=== PATIENT | male | born 1945 | race Caucasian/White ===

== ENCOUNTER → 2017-05-11 | Outpatient (CLI) | payer MEDICARE ==
--- NOTE | 2017-05-11 14:32 | CT ---
EXAMINATION TYPE: CT abdomen pelvis wo con DATE OF EXAM: 05/11/2017 COMPARISON: CT chest 10/02/2013. HISTORY: 71-year-old male persistent RLQ pain CT DLP: 982 mGycm. Automated exposure control for dose reduction was used. TECHNIQUE: Contiguous axial scanning of the abdomen and pelvis without IV contrast. Coronal and sagit dylan reconstructions performed. FINDINGS: Heart is normal size without pericardial effusion. Some coronary vessel calcifications are seen. Scattered bibasilar pulmonary nodules measuring up to 5 mm on the right axial image 5 and 7. On the l eft, 4 mm and smaller pulmonary nodules seen on axial image 5, 8, 9, and 13. All of these were presen t back on 10/02/2013. Noncontrast appearance of the liver, gallbladder, adrenal glands, spleen, and pancreas show no gross abnormality. Small sized periumbilical hernia. Mild bilateral perinephric stranding likely chronic, senescent change. Similarly, mild stranding thro ughout the intra-abdominal fat likely also senescent change. Mild to moderate at the scattered calcifications within the abdominal aorta and iliac arteries. No mesenteric or retroperitoneal lymphadenopathy seen. No dilated small bowel, free fluid, or free air. While the appendix is not visualized, no focal inflammatory changes seen within the right lower quadr ant Scattered mild to moderate stool without pericolonic inflammatory change. Bladder is urine distended. Prostate gland is enlarged measuring 5.2 cm wide. No abnormal fluid colle ction in the pelvis or pelvic lymphadenopathy seen. Bones: Degenerative changes at both hips and sacroiliac joints and within the mid to lower lumbar spi ne. No osseous destructive process. IMPRESSION: 1. No specific acute inflammatory process identified to account for the patient's symptoms. 2. Bibasilar pulmonary nodules stable back to 2012 compatible with a benign etiology. 3. Prostatomegaly (5.2 cm wide). Small fat-containing umbilical hernia.
== END | disposition home or self-care (01) ==
LOC: RADCTMAIN 12:55
PROVIDERS: ATTEND Internal Medicine
DX: R10.31 Right lower quadrant pain (principal); R91.8 Other nonspecific abnormal finding of lung field; N40.0 Benign prostatic hyperplasia without lower urinary tract symptoms; K42.9 Umbilical hernia without obstruction or gangrene; Z88.0 Allergy status to penicillin; Z88.3 Allergy status to other anti-infective agents
CPT/HCPCS: 74176

== ENCOUNTER → 2017-09-29 | Outpatient (CLI) | payer MEDICARE ==
--- NOTE | 2017-09-29 17:22 | US ---
EXAMINATION TYPE: US venous doppler duplex LE LT DATE OF EXAM: 09/29/2017 5:11 PM COMPARISON: NONE CLINICAL HISTORY: M79.662 Pain left lower limb R22.42 Swelling LLE. SIDE PERFORMED: Left TECHNIQUE: The lower extremity deep venous system is examined utilizing real time linear array sonog kevin with graded compression, doppler sonography and color-flow sonography. VESSELS IMAGED: External Iliac Vein (EIV) Common Femoral Vein Deep Femoral Vein Greater Saphenous Vein * Femoral Vein Popliteal Vein Small Saphenous Vein * Proximal Calf Veins (* superficial vessels) Left Leg: Negative for DVT Preliminary results phoned to Dr. Fontaine at 5:12 pm. IMPRESSION: Normal exam. No evidence of deep venous thrombosis in the left leg.
== END | disposition home or self-care (01) ==
LOC: RADUSMAIN 16:42
PROVIDERS: ATTEND Internal Medicine
DX: M79.662 Pain in left lower leg (principal); R22.42 Localized swelling, mass and lump, left lower limb

== ENCOUNTER → 2019-11-11 | Outpatient (CLI) | payer MEDICARE ==
[2019-11-11 14:35] LABS: HCT 32.8 % (39.0-53.0); HGB 10.9 gm/dL (13.0-17.5); MCH 30.2 pg (25.0-35.0); MCHC 33.1 g/dL (31.0-37.0); MCV 91.3 fL (80.0-100.0); Mean Platelet Volume 8.6; Platelet Count 170 k/uL (150-450); RDW 12.5 % (11.5-15.5); WBC 6.5 k/uL (3.8-10.6)
[2019-11-11 14:46] LABS: African American GFR (CKD) >90 (>60 ml/min/1.73 sqM); Anion Gap 5 mmol/L; Blood Urea Nitrogen 22 mg/dL (9-20); Carbon Dioxide 30 mmol/L (22-30); Chloride 102 mmol/L (98-107); Glucose 67 mg/dL (74-99); Non-African American GFR(CKD) 80 (>60 ml/min/1.73 sqM); Potassium 4.9 mmol/L (3.5-5.1); Sodium 137 mmol/L (137-145)
== END | disposition home or self-care (01) ==
LOC: LABPAT 13:14
PROVIDERS: ATTEND Internal Medicine Interventional Cardiology
DX: Z01.812 Encounter for preprocedural laboratory examination (principal); I25.10 Atherosclerotic heart disease of native coronary artery without angina pectoris; E11.9 Type 2 diabetes mellitus without complications
CPT/HCPCS: 36415; 80051; 82565; 82947; 84520; 85027

== ENCOUNTER 2019-11-20 06:18 | Day surgery (SDC) | payer MEDICARE ==
[2019-11-15 12:47] VITALS: BMI 26.5
[2019-11-20] MEDS ORDERED: ASPIRIN 325 MG TAB PO STA (06:33)
[2019-11-20] MEDS ORDERED: ATORVASTATIN 80 MG TAB PO STA (06:33)
[2019-11-20] MEDS ORDERED: NITROGLYCERIN SL TABS 0.4 MG TAB SUBLINGUAL PRN ×2 (06:33→09:20)
[2019-11-20] MEDS ORDERED: ALPRAZolam 0.5 MG TAB PO PRN (06:33)
[2019-11-20] MEDS ORDERED: ALPRAZolam 0.25 MG TAB PO PRN (06:33)
[2019-11-20] MEDS ORDERED: SODIUM CHLORIDE 0.9% 1,000 ML in EMPTY BAG 1 BAG IV ONE (06:33)
[2019-11-20 07:12] LABS: Glucose,Whole Blood 146 mg/dL (75-99)
[2019-11-20] MEDS ORDERED: fentaNYL (PF) 50 MCG/ML 2 ML AMP ONE (07:16)
[2019-11-20] MEDS ORDERED: VERAPAMIL 2.5 MG/ML 2 ML AMP ONE (07:16)
[2019-11-20] MEDS ORDERED: LIDOCAINE 1% INJ 10MG/ML (20 ML MDV) ONE (07:16)
[2019-11-20] MEDS ORDERED: HEPARIN SODIUM 1,000 UN/ML (10ML VL) ONE (07:16)
[2019-11-20] MEDS ORDERED: fentaNYL (PF) 50 MCG/ML 2 ML AMP IV ONE (07:35)
[2019-11-20] MEDS ORDERED: MIDAZOLAM 2 MG/2 ML VIAL IV ONE (07:38)
[2019-11-20] MEDS ORDERED: LIDOCAINE 1% INJ 10MG/ML (20 ML MDV) SQ ONE (07:38)
[2019-11-20] MEDS ORDERED: VERAPAMIL SYRINGE (5 MG/10 ML) INTRAARTER ONE (07:43)
[2019-11-20] MEDS ORDERED: BIVALIRUDIN BOLUS 250 MG/50 ML IV ONE ×2 (07:54→08:44)
[2019-11-20] MEDS ORDERED: BIVALIRUDIN 250 MG in SODIUM CHLORIDE 0.9% 50 ML IV ONE (07:55)
[2019-11-20] MEDS ORDERED: PRASUGREL 10 MG TAB PO ONE (07:55)
[2019-11-20] MEDS ORDERED: PRASUGREL 10 MG TAB ONE (07:56)
[2019-11-20] MEDS: NITROGLYCERIN 1000MCG/10ML SYRINGE INTRACORON ONE ×2 (07:59→08:37)
[2019-11-20] MEDS ORDERED: IOPAMIDOL-370 125ML BTL INJ ONE (08:07)
[2019-11-20] MEDS ORDERED: BIVALIRUDIN 250 MG in SODIUM CHLORIDE 0.9% 32 ML IV ONE (08:44)
[2019-11-20] MEDS ORDERED: IOPAMIDOL-370 100ML BTL INJ ONE ×2 (08:49→09:01)
[2019-11-20] MEDS ORDERED: ATROPINE SULFATE 0.1 MG/ML 10ML SYRINGE IV PRN (09:20)
[2019-11-20] MEDS ORDERED: RX INFO: IV CONTRAST WAS GIVEN 1 EACH MISC MISCELLANE PRN (09:20)
[2019-11-20] MEDS ORDERED: ZOLPIDEM 5 MG TAB PO PRN (09:20)
[2019-11-20] MEDS ORDERED: MAG HYDROX/AL HYDROX/SIMETH 30 ML CUP PO PRN (09:20)
[2019-11-20] MEDS ORDERED: LOPERAMIDE 2 MG CAP PO PRN (09:21)
[2019-11-20] MEDS ORDERED: SODIUM CHLORIDE 0.9% 1,000 ML IV SCH (09:30)
[2019-11-20] MEDS ORDERED: INSULIN ASPART (NovoLOG) 100 UNIT/ML VIAL SQ SCH (09:30)
[2019-11-20 09:42] LABS: Glucose,Whole Blood 151 mg/dL (75-99)
--- NOTE | 2019-11-20 09:49 | CC ---
CARDIAC CATHETERIZATION REPORT Mr. Hassan is a 74-year-old male with known history of hypertension, hyperlipidemia, longstanding history of diabetes and history of coronary artery disease with subtotally chronic occlusion of the right coronary artery, who recently has been complaining of increasing discomfort in the elbow, which is his anginal pain. In view of that, recommendation regarding cardiac catheterization, the procedures, risks, and complication were discussed with the patient who is in full understanding and agreement. PROCEDURE: Patient was brought to test lab technician in the fasting semi-sedated state after receiving fentanyl and Benadryl and achieving moderate conscious sedated state. Using Xylocaine anesthesia and Seldinger technique, a 6-Egyptian sheath was introduced in the right radial artery. Selective right and left coronary angiography performed using 5- Egyptian 3.5 bend right and left Gauri catheter, multiple views including hemiaxial views obtained. Following that a 5-Egyptian tight pigtail catheter was introduced in the left ventricle and pressures were calculated. Following that, catheters were removed. images were reviewed. FINDINGS: FLUOROSCOPY: There was severe calcification involving the left main and the left anterior descending artery. LEFT MAIN: This is a short size vessel, bifurcating into left circumflex, left anterior descending artery, left main coronary artery has no evidence of high- grade stenosis. LEFT ANTERIOR DESCENDING ARTERY: This is a large-sized vessel reaching toward the apex with a wraparound apex segment heavily calcified proximally giving rise to a small diagonal branch proximally. The left anterior descending artery has intimal disease of 20% to 30% in the proximal mid segment without any evidence of high-grade stenosis. LEFT CIRCUMFLEX: This is a nondominant vessel, large in caliber giving rise to 3 obtuse marginal branch at the takeoff of the second obtuse marginal branch. There is 20% to 30% plaque. The second obtuse marginal branch is small caliber and has had significant obstructive disease about 70%-80% at the ostium. The rest of the vessel has no high-grade stenosis. Right coronary artery : this is a dominant vessel bifurcating into PDA segment and branches. The right coronary artery has a long subtotal occlusion in the mid segment with 99% the stenosis. Collaterals: There is collateral from the left coronary system to the right coronary artery PDA. LEFT VENTRICULOGRAM: Not performed. HEMODYNAMICS: There was no gradient across the aortic valve the ventricle end-diastolic pressure was 20-24 mmHg. CONCLUSION: 1. Subtotally occluded long segment of the right coronary artery, which is a chronic subtotal occlusion. 2. Mild to moderate disease in the LAD and the left circumflex with significant calcification of the LAD. RECOMMENDATION: In view of finding anatomy, I recommend proceeding with attempt to angioplasty and stenting the right coronary artery. The procedures risks and complication were discussed with the patient who is in full understanding and agreement. MMMAGED / ELEAZARN: [id number] / WILBUR
--- NOTE | 2019-11-20 09:49 | PTCA ---
PERCUTANEOUSTRANS CORORONARY ANGIOGRAPHY Mr. Hassan is a 74-year-old male with known history of hypertension, hyperlipidemia, diabetes mellitus, who has been complaining of progressive symptoms of angina pectoris, underwent cardiac catheterization, was found to have a subtotally occluded right coronary artery. In view of that, recommendation was made regarding angioplasty and stenting. The procedure as well as the risks and the complications were discussed with the patient who is in full understanding and agreement. PROCEDURE: A 6-Lao FR4 guiding catheter introduced in the system. After cannulating the right coronary ostium, a 0.014 balanced medium weight J-wire with the help of a SuperCross microcatheter were used to cross the lesion. The microcatheter would not advanced across the lesion. At that point, the microcatheter was removed and a 1.5 x 6 mm Sprinter balloon was advanced and attempt to advance across the lesion were unsuccessful. At that point, the balloon was removed and a 0.014 Whisper J-wire was advanced and positioned distally, and in spite of the dual wire the balloon could not be advanced. At that point, the Whisper wire was removed and Godzilla catheter was advanced and with the help of that catheter, a 1.5 x 6 mm Mini Trek balloon was advanced across the lesion. Multiple inflations, maximum of 10 atmospheres, were done. Following that, the balloon was removed and the 0.014 Whisper J-wire was re- advanced in position in the PDA. Subsequently over the whisper, a 2.25 x 12 mm Trek balloon was advanced and multiple inflations in the mid segment were done at maximum of 8 atmospheres. Following that, the balloon was removed and a 2.5 x 28 mm Xience Britta stent was deployed, postdilated at 16 atmospheres. After removing that balloon, a 2.5 x 12 mm Xience Britta stent was deployed distal to the first one, postdilated to 16 atmospheres and subsequently 2.5 x 12 mm Xience Britta stent was deployed proximal to the first one and postdilated to 16 atmospheres. After the last inflation, after appropriate wait, the balloon and the guidewire were withdrawn back in the guiding catheter. Images were obtained repeated. Those images reveal stable successful stenting. At that point, the guiding catheter, the balloon and the guidewire were removed. The sheath was removed. Hemostasis was obtained with deployment of a TR band. There was no immediate complication. Patient was returned to his room in stable condition. Of note, the patient received Angiomax per protocol as well as oral loading dose of Effient. He had no chest discomfort or EKG changes with the inflations. RESULTS: Successful stenting of a long segment of subtotally occluded proximal right coronary artery with reduction of stenosis from 99% to 0%. RECOMMENDATIONS: Patient will be continued on aspirin, Effient, beta david, ANDRES inhibitor and statin. The importance of dual antiplatelet treatment was discussed with the patient and his family who are in full understanding and agreement. Duration of procedure is 87 minutes. MMCHERIL / IJN: [id number] / MTDAlix
--- NOTE | 2019-11-20 09:55 | LTR ---
November 20, 2019 Re: Junior Lemuszayra Dear Dr. Fontaine: I had the opportunity to perform cardiac catheterization and coronary angioplasty and stenting on Mr. Hassan at [facility] on the 20 of November and a full copy of the procedure note will be forwarded to you. In brief, he was found to have subtotally occluded right coronary artery, under successful stenting of that vessel. I am hopeful that this procedure will stabilize his status. Thank you again for allowing me the opportunity to participate in his care. Please feel free to call for any questions. Sincerely yours, MD HENRY BarlowL / ELEAZARN: [id number] /
[2019-11-20 11:32] LABS: Glucose,Whole Blood 190 mg/dL (75-99)
[2019-11-20 16:53] LABS: Glucose,Whole Blood 68 mg/dL (75-99)
[2019-11-20 17:22] LABS: Glucose,Whole Blood 79 mg/dL (75-99)
[2019-11-20] MEDS: PANTOPRAZOLE 40 MG TABLET PO SCH (17:36)
[2019-11-20] MEDS: METOCLOPRAMIDE 10 MG TAB PO SCH ×2 (17:37→20:09)
[2019-11-20] MEDS: HYOSCYAMINE SULFATE 0.375 MG TAB.ER.12H PO SCH (20:08)
[2019-11-20] MEDS: GABAPENTIN 300 MG CAP PO SCH (20:09)
[2019-11-20 20:46] LABS: Glucose,Whole Blood 158 mg/dL (75-99)
[2019-11-21 05:22] VITALS: RESP 18
[2019-11-21 06:08] LABS: Glucose,Whole Blood 130 mg/dL (75-99)
[2019-11-21] MEDS: PANTOPRAZOLE 40 MG TABLET PO SCH (06:31)
[2019-11-21 07:05] LABS: African American GFR (CKD) >90 (>60 ml/min/1.73 sqM); Anion Gap 7 mmol/L; Blood Urea Nitrogen 20 mg/dL (9-20); Calcium 8.7 mg/dL (8.4-10.2); Carbon Dioxide 25 mmol/L (22-30); Chloride 107 mmol/L (98-107); Glucose 126 mg/dL (74-99); Non-African American GFR(CKD) 88 (>60 ml/min/1.73 sqM); Potassium 4.4 mmol/L (3.5-5.1); Sodium 139 mmol/L (137-145)
[2019-11-21] MEDS: METOCLOPRAMIDE 10 MG TAB PO SCH (08:58)
[2019-11-21] MEDS: HYOSCYAMINE SULFATE 0.375 MG TAB.ER.12H PO SCH (08:59)
[2019-11-21] MEDS ORDERED: CALCIUM CARB-VIT D 500MG-200UN 1 EACH TAB PO SCH (09:00)
[2019-11-21] MEDS ORDERED: METOPROLOL SUCCINATE (ER) 50 MG TAB.ER.24H PO SCH (09:00)
[2019-11-21] MEDS ORDERED: LORATADINE 10 MG TAB PO SCH (09:00)
[2019-11-21] MEDS ORDERED: CHOLECALCIFEROL 1,000 UNIT TAB PO SCH (09:00)
[2019-11-21] MEDS: GABAPENTIN 300 MG CAP PO SCH (09:00)
[2019-11-21] MEDS ORDERED: LISINOPRIL 20 MG TAB PO SCH (09:00)
[2019-11-21] MEDS ORDERED: ATORVASTATIN 40 MG TAB PO SCH (09:00)
[2019-11-21] MEDS ORDERED: ASPIRIN 81 MG PO SCH (09:00)
[2019-11-21] MEDS ORDERED: PRASUGREL 10 MG TAB PO SCH (09:00)
--- NOTE | 2019-11-21 09:41 | PN ---
PROGRESS NOTE Mr. Hassan is a 74-year-old male with known history of hypertension, hyperlipidemia, and diabetes mellitus who presented with progressive symptoms of angina pectoris, underwent cardiac catheterization, was found to have chronic subtotal occlusion of the right coronary artery, underwent stenting of that vessel. He is doing well this morning, ambulating without difficulty, denying any dizziness. No palpitation. He denies any nausea. He feels better overall. He continues to be on aspirin once a day, Lipitor 40 mg daily, insulin, Levbid, Neurontin 300 mg twice a day, Zestril 20 mg daily, Reglan 10 mg 3 times a day, metoprolol succinate 50 mg daily, Protonix and Effient 10 mg daily. PHYSICAL EXAMINATION: Blood pressure 136/60 with the heart rate in the 60s. LUNGS: Clear. HEART: Regular rate and rhythm. S1, S2. No S3 with systolic ejection murmur 2/6 heard at the base. No diastolic murmur. No rub. ABDOMEN: Soft, nontender. Positive bowel sounds. No organomegaly. EXTREMITIES: No edema. Right radial pulse intact. EKG revealed no acute changes. BUN and creatinine 20 and 0.81. Potassium 4.4. IMPRESSION: 1. Status post stenting of subtotal occlusion of the right coronary artery. 2. Hypertension. 3. Hyperlipidemia. 4. Diabetes mellitus. RECOMMENDATION: The patient will be discharged home today and followed as an outpatient. MMCHERIL / SUNG: [id number] /
[2019-11-21 09:42] VITALS: BP 140/67; PULSE 72; TEMP 98.4
== END 2019-11-21 10:45 | disposition home or self-care (01) ==
LOC: CATHCVL 06:18 → 3SCARD 16:16 → CATHCVL 11-21 10:45
PROVIDERS: ATTEND Internal Medicine Interventional Cardiology
DX: I25.110 Atherosclerotic heart disease of native coronary artery with unstable angina pectoris (principal); I25.84 Coronary atherosclerosis due to calcified coronary lesion; I10 Essential (primary) hypertension; Z87.891 Personal history of nicotine dependence; E78.2 Mixed hyperlipidemia; E11.9 Type 2 diabetes mellitus without complications; Z79.82 Long term (current) use of aspirin; Z79.4 Long term (current) use of insulin; Z79.899 Other long term (current) drug therapy; Z88.0 Allergy status to penicillin; Z88.8 Allergy status to other drugs, medicaments and biological substances
CPT/HCPCS: 94760; 93458; 85347; 80048; C1725 ×3; C9600; C1769 ×4; C1887 ×3; C1874; C1894; J2250; J2001; J3010; J0583; Q9967 ×2

== ENCOUNTER 2021-01-08 07:54 | Day surgery (SDC) | payer MEDICARE ==
[2021-01-04 15:31] VITALS: BMI 26.5
[~2021-01-08 07:54] MED LIST: ALPRAZolam 0.25 MG TAB PO PRN; ALPRAZolam 0.5 MG TAB PO PRN; ASPIRIN 325 MG TAB PO STA; ATORVASTATIN 80 MG TAB PO STA; HEPARIN SODIUM,PORCINE 10,000 UNIT in SODIUM CHLORIDE 0.9% 1,000 ML IRRIGATION PRN; HEPARIN SODIUM,PORCINE 2,500 UNIT in SODIUM CHLORIDE 0.9% 250 ML IRRIGATION PRN; NITROGLYCERIN SL TABS 0.4 MG TAB SUBLINGUAL PRN; SODIUM CHLORIDE 0.9% 1,000 ML in EMPTY BAG 1 BAG IV ONE
[2021-01-08] MEDS ORDERED: METOPROLOL SUCCINATE (ER) 50 MG TAB.ER.24H PO STA (08:20)
[2021-01-08 08:22] LABS: Glucose,Whole Blood 183 mg/dL (75-99)
[2021-01-08 08:25] VITALS: RESP 18; TEMP 97.6
[2021-01-08] MEDS ORDERED: LIDOCAINE 1% INJ 10MG/ML (20 ML MDV) ONE (08:30)
[2021-01-08] MEDS ORDERED: fentaNYL (PF) 50 MCG/ML 2 ML AMP ONE (08:30)
[2021-01-08 08:33] LABS: Basophils % (A) 0 %; Eosinophils # (A) 0.3 k/uL (0-0.7); Eosinophils % (A) 5 %; HCT 36.5 % (39.0-53.0); HGB 12.4 gm/dL (13.0-17.5); Lymphocytes # (A) 1.5 k/uL (1.0-4.8); Lymphocytes % (A) 26 %; MCH 30.3 pg (25.0-35.0); MCV 89.2 fL (80.0-100.0); Mean Platelet Volume 8.2; Monocytes # (A) 0.4 k/uL (0-1.0); Monocytes % (A) 7 %; Neutrophils # (A) 3.3 k/uL (1.3-7.7); Neutrophils % (A) 60 %; Platelet Count 189 k/uL (150-450); RBC 4.09 m/uL (4.30-5.90); RDW 12.8 % (11.5-15.5); WBC 5.5 k/uL (3.8-10.6)
[2021-01-08] MEDS ORDERED: VERAPAMIL 2.5 MG/ML 2 ML AMP ONE (08:44)
[2021-01-08] MEDS ORDERED: HEPARIN SODIUM 1,000 UN/ML (10ML VL) ONE (08:44)
[2021-01-08 08:49] LABS: Calcium 9.6 mg/dL (8.4-10.2); Potassium 4.3 mmol/L (3.5-5.1)
[2021-01-08] MEDS ORDERED: fentaNYL (PF) 50 MCG/ML 2 ML AMP IV ONE (09:20)
[2021-01-08] MEDS ORDERED: LIDOCAINE 1% INJ 10MG/ML (20 ML MDV) SQ ONE ×2 (09:25→09:37)
[2021-01-08] MEDS ORDERED: IOPAMIDOL-370 150ML BTL INJ ONE (09:55)
[2021-01-08] MEDS ORDERED: IOPAMIDOL-370 100ML BTL INJ ONE (10:10)
[2021-01-08] MEDS ORDERED: NITROGLYCERIN SL TABS 0.4 MG TAB SUBLINGUAL PRN (10:25)
[2021-01-08] MEDS ORDERED: ZOLPIDEM 5 MG TAB PO PRN (10:25)
[2021-01-08] MEDS ORDERED: ATROPINE SULFATE 0.1 MG/ML 10ML SYRINGE IV PRN (10:25)
[2021-01-08] MEDS ORDERED: RX INFO: IV CONTRAST WAS GIVEN 1 EACH MISC MISCELLANE PRN (10:25)
[2021-01-08] MEDS ORDERED: MAG HYDROX/AL HYDROX/SIMETH 30 ML CUP PO PRN (10:25)
[2021-01-08] MEDS ORDERED: LOPERAMIDE 2 MG CAP PO PRN (10:26)
[2021-01-08] MEDS ORDERED: METOCLOPRAMIDE 10 MG TAB PO PRN (10:26)
[2021-01-08] MEDS ORDERED: SODIUM CHLORIDE 0.9% 1,000 ML IV SCH (10:30)
[2021-01-08] MEDS ORDERED: INSULIN ASPART (NovoLOG) 100 UNIT/ML VIAL SQ SCH (10:30)
--- NOTE | 2021-01-08 10:53 | CC ---
CARDIAC CATHETERIZATION REPORT Mr. Hassan is a 75-year-old male with a known history of coronary artery disease, hypertension, hyperlipidemia and diabetes mellitus who presented with symptoms of elbow discomfort, which is similar to his anginal pain and in view of that, recommendation was made regarding cardiac catheterization. The procedure as well as risks and complications were discussed with the patient who is in full understanding and agreement. PROCEDURE: Patient was brought to micro lab analyst in a fasting semi-sedated state after receiving fentanyl and Benadryl and achieving moderate conscious sedated state. Using Xylocaine anesthesia and Seldinger technique, attempts to cannulate the right radial artery were unsuccessful. At that time using Xylocaine anesthesia and Seldinger technique a 6- [place] sheath was introduced in the right femoral artery. Selective right and left coronary angiography performed using 6-[place] 4 bend right and left Gauri catheter. Multiple views of the coronary artery including hemiaxial views were obtained. Following that, the aortic valve was crossed using the 6-[place] AL 0.75 guiding catheter. Following that, images were reviewed. FINDINGS: FLUOROSCOPY: There was significant calcification involving the left main as well as the left anterior descending artery. LEFT MAIN: This is a large-sized vessel, bifurcating into left circumflex, left anterior descending artery. Left main coronary artery has a 10% to 20% plaque distally. LEFT ANTERIOR DESCENDING ARTERY: This is a large-sized vessel reaching to the apex with a wraparound apex segment, calcified proximally, has a tubular lesion of about 30% to 40%. The rest of the vessel has no high-grade stenosis. It gives rise to a diagonal branch proximally that has intimal disease but it is small in caliber. LEFT CIRCUMFLEX: This is a codominant vessel, giving rise to 2 obtuse marginal branches. Distally, giving rise to right PDA. The second obtuse marginal branch is small in caliber and has a 90% plaque at the ostium. The proximal left circumflex is 20% to 30% plaque. The rest of the vessel has no evidence of high-grade stenosis. RIGHT CORONARY ARTERY: This is a large codominant vessel, bifurcating distally PDA and posterolateral segment and branches. The right coronary artery stented segment is patent. In the mid area, there is in-stent restenosis with area of stenosis up to 90%. The rest of the vessel has intimal disease without any evidence of high-grade stenosis. LEFT VENTRICULOGRAM: The left ventriculogram was not performed. HEMODYNAMICS: There was no gradient across the aortic valve. The left ventricular end- diastolic pressure was 20 mmHg. CONCLUSION: 1. Calcified coronary arteries. 2. Significant in-stent restenosis in the mid RCA. 3. Mild to moderate disease in the circumflex and the LAD. RECOMMENDATION: In view of finding anatomy, I recommend proceeding with angioplasty and stenting. The procedure, risks, and complication were discussed with the patient who is in full understanding and agreement. MMMAGED / ELEAZARN: [id number] / MTDD
--- NOTE | 2021-01-08 11:05 | PTCA ---
PERCUTANEOUSTRANS CORORONARY ANGIOGRAPHY Mr. Hassan is a 75-year-old male with a known history of coronary artery disease who presented with symptoms of angina pectoris, underwent cardiac catheterization, was found to have critical stenosis involving the mid right coronary artery. In view of that, recommendation was made regarding angioplasty and stenting, the procedure, risks, and complications were discussed with the patient who is in full understanding and agreement. PROCEDURE: A 6-Irish left Amplatz 0.75 guiding catheter introduced in the system. After stenting the right coronary ostium, a 0.014 balanced medium weight J-wire was advanced across the lesion, positioned distally then a 2.5 x 12 NC Emerge balloon was advanced and 2 inflations at 12 atmospheres were done. Following that the balloon was removed and a 2.75 x 15 mm Xience Britta stent was advanced, deployed and post dilated at 16 atmospheres. Following that, the balloon was removed and a 3.0 x 12 mm NC Trek balloon was advanced and one inflation at 14 atmospheres was done. After the last inflation, after appropriate wait, the balloon and the guidewire were withdrawn back in the guiding catheter. Images were obtained, repeated. Those images reveal stable successful stenting. At that point, the guiding catheter, the balloon and the guidewire were removed. The sheath was removed. Hemostasis was obtained with deployment of an Angio-Seal. There was no immediate complication. The patient was returned to his room in stable condition. Of note, the patient received 7000 units of intravenous heparin and was continued on Effient. He had no chest discomfort or significant EKG changes with the inflations. RESULTS: Successful stenting of the mid RCA with reduction of stenosis from a 90% to 0%. RECOMMENDATION: Patient be continued on aspirin, Effient, statin. The importance of dual antiplatelet treatment were discussed with the patient and his family who are in full understanding and agreement. Duration of sedation is 46 minutes. MMODL / IJN: [id number] /
--- NOTE | 2021-01-08 11:08 | LTR ---
January 08, 2021 Re: Junior Lemuszayra Dear Dr. Fontaine: I had the opportunity to perform cardiac catheterization and coronary angioplasty and stenting on Mr. Hassan at [facility] on the 08 of January and a full copy of the procedure note will be forwarded to you. In brief, he was found to have significant disease in the mid right coronary artery underwent successful stenting of that vessel. I am hopeful that this procedure will stabilize his status. Thank you again for allowing me the opportunity to participate in his care. Please feel free to call for any questions. Sincerely yours, MD HENRY BarlowL / ELEAZARN: [id number] /
[2021-01-08] MEDS ORDERED: SODIUM CHLORIDE 0.9% 500 ML 500 ML IV ONE (14:00)
[2021-01-08 14:42] VITALS: BP 144/68; PULSE 54
[2021-01-08] MEDS ORDERED: PANTOPRAZOLE 40 MG TABLET PO SCH (17:30)
[2021-01-08] MEDS ORDERED: GABAPENTIN 300 MG CAP PO SCH (21:00)
[2021-01-08] MEDS ORDERED: HYOSCYAMINE SULFATE 0.375 MG TAB.ER.12H PO SCH (21:00)
[2021-01-09] MEDS ORDERED: METOPROLOL SUCCINATE (ER) 50 MG TAB.ER.24H PO SCH (09:00)
[2021-01-09] MEDS ORDERED: lisinopriL 20 MG TAB PO SCH (09:00)
[2021-01-09] MEDS ORDERED: TAMSULOSIN 0.4 MG CAP.ER.24H PO SCH (09:00)
[2021-01-09] MEDS ORDERED: ASPIRIN 81 MG PO SCH (09:00)
[2021-01-09] MEDS ORDERED: ATORVASTATIN 40 MG TAB PO SCH (09:00)
[2021-01-09] MEDS ORDERED: MULTIVITAMINS, THERA 1 EACH TAB PO SCH (09:00)
[2021-01-09] MEDS ORDERED: PRASUGREL 10 MG TAB PO SCH (09:00)
[2021-01-09] MEDS ORDERED: ISOSORBIDE MONONITRATE ER 30 MG TAB.ER.24H PO SCH (09:00)
== END 2021-01-08 15:25 | disposition home or self-care (01) ==
LOC: CATHCVL 07:54
PROVIDERS: ATTEND Internal Medicine Interventional Cardiology
DX: I25.110 Atherosclerotic heart disease of native coronary artery with unstable angina pectoris (principal); T82.855A Stenosis of coronary artery stent, initial encounter; I25.84 Coronary atherosclerosis due to calcified coronary lesion; I10 Essential (primary) hypertension; E78.2 Mixed hyperlipidemia; E11.9 Type 2 diabetes mellitus without complications; Z95.5 Presence of coronary angioplasty implant and graft; Z72.0 Tobacco use; Z79.4 Long term (current) use of insulin; Z79.82 Long term (current) use of aspirin; Z79.899 Other long term (current) drug therapy; Z88.0 Allergy status to penicillin; Z88.8 Allergy status to other drugs, medicaments and biological substances
CPT/HCPCS: 80048; 85025; 85347; 93458

== ENCOUNTER 2021-10-14 06:23 | Day surgery (SDC) | payer MEDICARE ==
[2021-10-11 11:47] VITALS: BMI 27.1
[~2021-10-14 06:23] MED LIST changes: -ATORVASTATIN 80 MG TAB PO STA; -SODIUM CHLORIDE 0.9% 1,000 ML in EMPTY BAG 1 BAG IV ONE; +SODIUM CHLORIDE 0.9% 1,000 ML in EMPTY BAG 1 BAG IV SCH
[2021-10-14] MEDS ORDERED: SODIUM CHLORIDE 0.9% 1,000 ML IV ONE (06:47)
[2021-10-14] MEDS ORDERED: ASPIRIN 81 MG ONE (06:51)
[2021-10-14 07:07] LABS: Glucose,Whole Blood 205 mg/dL (75-99)
[2021-10-14 07:11] VITALS: TEMP 98.2
[2021-10-14] MEDS ORDERED: LIDOCAINE 1% INJ 10MG/ML (20 ML MDV) ONE (07:23)
[2021-10-14] MEDS ORDERED: VERAPAMIL 2.5 MG/ML 2 ML AMP ONE (07:23)
[2021-10-14] MEDS ORDERED: HEPARIN SODIUM 1,000 UN/ML (10ML VL) ONE (07:24)
[2021-10-14] MEDS ORDERED: fentaNYL (PF) 50 MCG/ML 2 ML AMP IV ONE (07:28)
[2021-10-14] MEDS ORDERED: LIDOCAINE 1% INJ 10MG/ML (20 ML MDV) SQ ONE (07:32)
[2021-10-14] MEDS ORDERED: VERAPAMIL SYRINGE (5 MG/10 ML) INTRAARTER ONE (07:33)
[2021-10-14] MEDS: HEPARIN SODIUM 1,000 UN/ML (10ML VL) IV ONE ×2 (07:43→07:48)
[2021-10-14] MEDS ORDERED: NITROGLYCERIN 1000MCG/10ML SYRINGE INTRACORON ONE (08:00)
[2021-10-14] MEDS ORDERED: IOPAMIDOL-370 125ML BTL INJ ONE (08:15)
[2021-10-14] MEDS ORDERED: IOPAMIDOL-370 100ML BTL INJ ONE (08:28)
[2021-10-14 08:41] LABS: Glucose,Whole Blood 200 mg/dL (75-99)
[2021-10-14] MEDS ORDERED: MAG HYDROX/AL HYDROX/SIMETH 30 ML CUP PO PRN (08:44)
[2021-10-14] MEDS ORDERED: ZOLPIDEM 5 MG TAB PO PRN (08:44)
[2021-10-14] MEDS ORDERED: NITROGLYCERIN SL TABS 0.4 MG TAB SUBLINGUAL PRN ×2 (08:44→08:46)
[2021-10-14] MEDS ORDERED: ATROPINE SULFATE 0.1 MG/ML 10ML SYRINGE IV PRN (08:44)
[2021-10-14] MEDS ORDERED: RX INFO: IV CONTRAST WAS GIVEN 1 EACH MISC MISCELLANE PRN (08:44)
[2021-10-14] MEDS ORDERED: SODIUM CHLORIDE 0.9% 1,000 ML IV SCH (08:45)
[2021-10-14] MEDS ORDERED: LOPERAMIDE 2 MG CAP PO PRN (08:46)
[2021-10-14] MEDS ORDERED: ASPIRIN 325 MG TAB PO SCH (09:00)
[2021-10-14] MEDS ORDERED: ISOSORBIDE MONONITRATE ER 15 MG TAB PO SCH (09:00)
[2021-10-14] MEDS ORDERED: INSULIN ASPART (NovoLOG) 100 UNIT/ML VIAL SQ SCH (09:00)
[2021-10-14] MEDS ORDERED: RAMIPRIL 5 MG PO SCH (09:00)
[2021-10-14] MEDS ORDERED: HYOSCYAMINE SULFATE 0.375 MG TAB.ER.12H PO SCH (09:00)
[2021-10-14] MEDS ORDERED: VITAMIN D3 PO SCH (09:00)
[2021-10-14] MEDS ORDERED: CALCIUM CARBONATE PO SCH (09:00)
[2021-10-14] MEDS ORDERED: ATORVASTATIN 40 MG TAB PO SCH (09:00)
[2021-10-14] MEDS ORDERED: DESLORATADINE 5 MG PO SCH (09:00)
[2021-10-14] MEDS ORDERED: PRASUGREL 10 MG TAB PO SCH (09:00)
[2021-10-14] MEDS ORDERED: NON FORMULARY DRUG (Omeprazole [Omeprazole] 20 MG Capsule.Dr) PO SCH (09:00)
[2021-10-14] MEDS ORDERED: IPRATROPIUM BROMIDE 0.06% NASAL SPRAY (15 ML) EA NOSTRIL SCH (09:00)
[2021-10-14] MEDS ORDERED: GABAPENTIN 300 MG CAP PO SCH (09:00)
[2021-10-14] MEDS ORDERED: MULTIVITAMINS, THERA 1 EACH TAB PO SCH (09:00)
[2021-10-14] MEDS ORDERED: METOCLOPRAMIDE 10 MG TAB PO SCH (09:00)
[2021-10-14] MEDS ORDERED: NON FORMULARY DRUG (Alfuzosin Hcl [Alfuzosin Hcl Er] 10 MG Tab.Er.24h) PO SCH (09:00)
[2021-10-14] MEDS ORDERED: [UNRECOGNIZED DRUG - OTHER] PO SCH (09:00)
[2021-10-14] MEDS ORDERED: METOPROLOL SUCCINATE (ER) 50 MG TAB.ER.24H PO SCH (09:00)
[2021-10-14 09:58] VITALS: RESP 14
--- NOTE | 2021-10-14 13:36 | CC ---
CARDIAC CATHETERIZATION REPORT Mr. Hassan is a 76-year-old male with known history of coronary artery disease status post percutaneous revascularization, history of hypertension, hyperlipidemia, diabetes mellitus, who has been complaining of symptoms of progressive dyspnea, chest discomfort. In view of that, recommendation regarding cardiac catheterization. The procedure as well as the risks and the complications were discussed with the patient who is in full understanding and agreement. PROCEDURE DESCRIPTION: Patient was brought to oven laborer in a fasting, semi-sedated state after receiving fentanyl and Benadryl and achieving moderate conscious sedated state. Using Xylocaine anesthesia and Seldinger technique a 6-Citizen [place] sheath was introduced in the left radial artery. Selective right and left coronary angiography performed using 5-Citizen [place] 4 bend right and left Gauri' catheter. Multiple views of the coronary artery including hemiaxial views were obtained. Following that, a 5-Citizen [place] tight pigtail catheter was introduced in the left ventricle and left ventricular end-diastolic pressure was calculated. Following that, catheter was removed. Images were reviewed. FINDINGS: FLUOROSCOPY: There was calcification involving the left main and left anterior descending artery. LEFT MAIN: This is a large-sized vessel bifurcating into left circumflex, left anterior descending artery, left main coronary artery has a 10% to 20% plaque in the mid segment. The rest of the vessel has no high-grade stenosis. LEFT ANTERIOR DESCENDING ARTERY: This is a large-sized vessel reaching to the apex with a wraparound apex segment giving rise to a diagonal branch of moderate caliber. The left anterior descending artery proximally is calcified, has a 30% to 40% plaque. There is mild intimal disease in the mid segment as well without any evidence of high- grade stenosis. LEFT CIRCUMFLEX: This is a codominant vessel giving rise to 2 obtuse marginal branches distally to PDA. The second obtuse marginal branch is small in caliber and has a 95-99 percent stenosis at the ostium. The rest of the vessel has no high-grade stenosis. RIGHT CORONARY ARTERY: This is a large codominant vessel giving rise to a PDA. The stented segment in the proximal and mid segment is patent. In the distal segment of the stent, there is a 50-70 percent in-stent restenoses. The rest of the vessel has no high-grade stenosis. LEFT VENTRICULOGRAM: Left ventriculogram was not performed. HEMODYNAMICS: There was no gradient across the aortic valve. The left ventricular end-diastolic pressure was 12-14 mmHg. CONCLUSION: 1. Borderline significant lesion in the mid RCA in the stented segment. 2. Mild disease in the left main. 3. Mild disease in the left anterior descending artery. 4. Significant disease in the ostium of the small 2nd obtuse marginal branch. RECOMMENDATIONS: In view of findings and anatomy, recommend to proceed with evaluation of the mid right coronary artery lesion and depending on that, further recommendations will be made. Those findings and recommendations were discussed with the patient and he was in full understanding and agreement. MMODL / IJN: [id number] /
--- NOTE | 2021-10-14 13:42 | PTCA ---
PERCUTANEOUSTRANS CORORONARY ANGIOGRAPHY Mr. Hassan is a 76-year-old male known history of coronary artery disease status post percutaneous revascularization of the right coronary artery, who presented with symptoms of progressive dyspnea and chest discomfort. His cardiac catheterization revealed borderline significant lesion in the mid right coronary artery in the stented segment. In view of that, recommendation made regarding further evaluation and depending on the results, intervention is needed. Those findings and recommendations were discussed with the patient who is in full understanding and agreement. PROCEDURE: A 0.75 AL 6-Korean guiding catheter was introduced into the system. After cannulating the right coronary ostium, an Omni Doppler flow wire was advanced, positioned distally. Subsequently, IFR was measured at 0.86. At that point, an AdviceIQ Eye IVUS catheter was introduced and imaging was obtained in the stented segment. Following that, a 3.5 x 20 mm NC Trek balloon was advanced and multiple inflations at a maximum of 14 atmospheres were done in the stented segment. Following that, the balloon was removed and IVUS catheter was reintroduced and images were repeated that revealed good opposition of the stent. At that point, the IVUS catheter was removed and the IFR was remeasured at 0.90. At that point, the wire was removed, images were obtained, repeated. Following that, the wire and guiding catheter were removed. Hemostasis was obtained with deployment of a TR band. There was no immediate complication. Patient is returned to his room in stable condition. Of note, the patient had no chest discomfort or significant EKG changes with the inflations. He received a total of 7500 units of intravenous heparin as well as intra-arterial verapamil. He was continued on Effient. RESULTS: Successful angioplasty of in-stent restenosis of the mid right coronary artery with following IFR and IVUS guidance with reduction of stenosis from 60-70 percent to 0%. RECOMMENDATIONS: Patient will be continued on aspirin, Effient, beta blockers, ANDRES inhibitors and statin. The importance of dual antiplatelet treatment were discussed with the patient and he is in full understanding and agreement. Duration of sedation is 52 minutes. ANIYAH / ELEAZARN: [id number] /
--- NOTE | 2021-10-14 13:42 | LTR ---
DATE OF SERVICE: 10/14/[address] Fontaine: I had the pleasure of performing coronary angiography and angioplasty on Mr. Hassan at [facility] on October 14 and a full copy of procedure note will be forwarded to you. In brief, he was found to have borderline significant lesion in the mid right coronary artery. After physiological evaluation, he underwent angioplasty of that vessel with improvement in the imaging and the physiological measurement. I am hopeful that this procedure will stabilize his status. Thank you again for allowing me to participate in his care. Please feel free to call for any questions. Sincerely yours, MMODL / IJN: [id number] /
[2021-10-14 15:03] VITALS: BP 165/72; PULSE 52
== END 2021-10-14 14:15 | disposition home or self-care (01) ==
LOC: CATHCVL 06:23
PROVIDERS: ATTEND Internal Medicine Interventional Cardiology
DX: I25.10 Atherosclerotic heart disease of native coronary artery without angina pectoris (principal); T82.855A Stenosis of coronary artery stent, initial encounter; Y83.8 Other surgical procedures as the cause of abnormal reaction of the patient, or of later complication, without mention of misadventure at the time of the procedure; E11.9 Type 2 diabetes mellitus without complications; I10 Essential (primary) hypertension; E78.2 Mixed hyperlipidemia; I65.23 Occlusion and stenosis of bilateral carotid arteries; Z20.822 Contact with and (suspected) exposure to COVID-19; Z79.4 Long term (current) use of insulin; Z79.899 Other long term (current) drug therapy; Z88.0 Allergy status to penicillin; Z88.8 Allergy status to other drugs, medicaments and biological substances; Z87.891 Personal history of nicotine dependence
CPT/HCPCS: 93571; 92978; 93458; 92920; 87635; C1887; C1894; C1725; C1753; C1769 ×2; J2001; J3010; J1644; Q9967 ×2

== ENCOUNTER → 2022-03-14 | Outpatient (CLI) | payer MEDICARE ==
--- NOTE | 2022-03-14 13:27 | US ---
EXAMINATION TYPE: US scrotum with doppler. Grayscale and color Doppler Duplex imaging performed of t carrie scrotum. DATE OF EXAM: 03/14/2022 COMPARISON: NONE CLINICAL HISTORY: N52.82 SCROTUM PAIN. Right sided x 6 months, especially after sitting. EXAM MEASUREMENTS: TESTICLES: Right Testicle: 4.6 x 3.0 x 2.6 cm Left Testicle: 5.0 x 2.8 x 2.1 cm EPIDIDYMIS HEAD: Right Epididymis: 0.9 x 1.0 x 0.6 cm Left Epididymis: 1.3 x 1.1 x 0.9 cm with cyst = 0.6 x 0.5 x 0.3 cm Doppler performed to assess for testicular vascularity; good bilateral color flow and waveforms are s een. There is no evidence of testicular torsion. Presence of hydroceles: Yes Presence of varicoceles: Yes IMPRESSION: 1. Small left epididymal head cyst. 2. Small hydroceles. 3. Varicoceles.
== END | disposition home or self-care (01) ==
LOC: RADUSWWP 12:05
PROVIDERS: ATTEND Internal Medicine
DX: N50.82 Scrotal pain (principal)
CPT/HCPCS: 76870; 93975

== ENCOUNTER 2022-09-27 07:53 | Day surgery (SDC) | payer MEDICARE ==
[2022-09-22 09:50] VITALS: BMI 27.2
[~2022-09-27 07:53] MED LIST changes: +ATORVASTATIN 80 MG TAB PO STA; -SODIUM CHLORIDE 0.9% 1,000 ML in EMPTY BAG 1 BAG IV SCH
[2022-09-27] MEDS ORDERED: SODIUM CHLORIDE 0.9% 1,000 ML in EMPTY BAG 1 BAG IV SCH (08:00)
[2022-09-27] MEDS ORDERED: SODIUM CHLORIDE 0.9% 1,000 ML IV ONE (08:09)
[2022-09-27 08:23] LABS: Glucose,Whole Blood 195 mg/dL (70-110)
[2022-09-27 08:26] VITALS: TEMP 98.3
[2022-09-27] MEDS ORDERED: VERAPAMIL 2.5 MG/ML 2 ML AMP ONE (08:42)
[2022-09-27] MEDS ORDERED: fentaNYL (PF) 50 MCG/ML 2 ML AMP ONE (08:58)
[2022-09-27] MEDS ORDERED: fentaNYL (PF) 50 MCG/ML 2 ML AMP IV ONE (09:15)
[2022-09-27] MEDS ORDERED: LIDOCAINE 1% INJ 10MG/ML (30 ML VIAL-PF) SQ ONE (09:17)
[2022-09-27] MEDS ORDERED: VERAPAMIL SYRINGE (5 MG/10 ML) INTRAARTER ONE (09:30)
[2022-09-27] MEDS ORDERED: HEPARIN SODIUM 1,000 UN/ML (10ML VL) IV ONE (09:40)
[2022-09-27] MEDS ORDERED: IOPAMIDOL-370 125ML BTL INJ ONE (09:48)
[2022-09-27] MEDS ORDERED: RX INFO: IV CONTRAST WAS GIVEN 1 EACH MISC MISCELLANE PRN (10:04)
[2022-09-27 10:07] LABS: Glucose,Whole Blood 173 mg/dL (70-110)
--- NOTE | 2022-09-27 10:14 | P.CARDCATH ---
Date of Procedure: 09/27/22 Description of Procedure: Cardiac Catheterization: The patient is a 77-year-old male with a known history of CAD, post multiple intervention on the RCA has been complaining of chest discomfort and had an abnormal MPI. Recommendations were made regarding cardiac catheterization, the risks and the complications were discussed with the patient who is in full understanding and agreement. 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 Using Xylocaine Anesthesia and Seldinger technique, a 6-Mongolian sheath was introduced in the left radial artery . Subsequently, selective coronary angiography was performed using a 5-Mongolian 4 bend Gauri catheter. Multiple views of the coronary artery including hemiaxial views were obtained. The 5-Mongolian Pigtail catheter was used to cross the aortic valve and LVEDP was calculated. Following that, catheter and sheath were removed. Hemostasis was obtained with deployment of TR band . There was no immediate complication. Patient was returned to room in stable condition. Of note, the patient received a total of 4500 units of intravenous heparin as well as intra-arterial verapamil. Findings: Fluoroscopy: Calcifications of the LAD and the left main was noted Left main: This is a large size vessel, bifurcating into LAD and left circumflex, left main has no high-grade stenosis LAD: This is a large size vessel, calcified proximally, reaching to the apex with wrap around the apex segment, giving rise to a moderately sized diagonal branch. The proximal LAD has a 20-30% plaque, take off of the diagonal branch has a 30% plaque, the rest of the vessel has no high-grade stenosis. Left circumflex: This is a large codominant vessel, bifurcating distally PDA and PLV. The mid left circumflex has a 40% plaque at the takeoff of the second obtuse marginal branch that has an 80% stenosis at the ostium, the second obtuse marginal branch is small in caliber RCA: This is a large codominant vessel, giving rise to a large PDA. The stented segment in the mid RCA is patent with 20-30% in-stent restenosis. The acute marginal branch is occluded with slow late filling. Left Ventriculogram: Not performed Hemodynamics: There was no gradient across the aortic valve , LVEDP was 10-12 mmHg Conclusion: 1. Calcified coronary arteries 2. Mild in-stent restenosis in the mid RCA 3. Significant disease in the small second obtuse marginal branch 4. Chronically occluded acute marginal branch Recommendations: In view of the findings and the absence of significant in-stent restenosis I would recommend to continue present medical regimen with the aggressive coronary risks modifications. The findings and the recommendations were discussed with the patient and the family and they were in full understanding and agreement. Duration of sedation is 35 minutes.
[2022-09-27] MEDS ORDERED: SODIUM CHLORIDE 0.9% 1,000 ML IV SCH (10:15)
[2022-09-27] MEDS ORDERED: INSULIN PUMP SQ-PUMP SCH (10:15)
[2022-09-27] MEDS ORDERED: METOPROLOL SUCCINATE (ER) 50 MG TAB.ER.24H PO STA (13:22)
[2022-09-27] MEDS ORDERED: METOCLOPRAMIDE 10 MG TAB PO SCH (16:00)
[2022-09-27 17:35] VITALS: RESP 16
[2022-09-27 17:45] VITALS: BP 167/72; PULSE 60
[2022-09-27] MEDS ORDERED: GABAPENTIN 300 MG CAP PO SCH (21:00)
[2022-09-27] MEDS ORDERED: HYOSCYAMINE SULFATE 0.375 MG TAB.ER.12H PO SCH (21:00)
[2022-09-28] MEDS ORDERED: ATORVASTATIN 40 MG TAB PO SCH (09:00)
[2022-09-28] MEDS ORDERED: METOPROLOL SUCCINATE (ER) 50 MG TAB.ER.24H PO SCH (09:00)
[2022-09-28] MEDS ORDERED: PRASUGREL 10 MG TAB PO SCH (09:00)
[2022-09-28] MEDS ORDERED: RAMIPRIL 5 MG PO SCH (09:00)
[2022-09-28] MEDS ORDERED: ISOSORBIDE MONONITRATE ER 15 MG TAB PO SCH (09:00)
[2022-09-28] MEDS ORDERED: ASPIRIN 325 MG TAB PO SCH (09:00)
[2022-09-28] MEDS ORDERED: DUTASTERIDE 0.5 MG PO SCH (09:00)
== END 2022-09-27 14:55 | disposition home or self-care (01) ==
LOC: CATHCVL 07:53
PROVIDERS: ATTEND Internal Medicine Interventional Cardiology
DX: I25.10 Atherosclerotic heart disease of native coronary artery without angina pectoris (principal); I10 Essential (primary) hypertension; E78.5 Hyperlipidemia, unspecified; E11.9 Type 2 diabetes mellitus without complications; G47.30 Sleep apnea, unspecified; F17.210 Nicotine dependence, cigarettes, uncomplicated; Z79.899 Other long term (current) drug therapy
CPT/HCPCS: 93458; C1769 ×2; C1894; J2001; J3010; J1644; Q9967

== ENCOUNTER → 2024-01-05 | Outpatient (CLI) | payer MEDICARE ==
--- NOTE | 2024-01-05 12:54 | US ---
EXAMINATION TYPE: US venous doppler duplex LE LT DATE OF EXAM: 01/05/2024 12:28 PM COMPARISON: 09/29/2017 CLINICAL INDICATION: Male, 78 years old with history of M79.662 PAIN LT LOWER LIMB; Left lower leg ac he, comes and goes SIDE PERFORMED: Left TECHNIQUE: The lower extremity deep venous system is examined utilizing real time linear array sonog kevin with graded compression, doppler sonography and color-flow sonography. VESSELS IMAGED: Common Femoral Vein Deep Femoral Vein Greater Saphenous Vein * Femoral Vein Popliteal Vein Small Saphenous Vein * Proximal Calf Veins (* superficial vessels) Left Leg: Negative for DVT IMPRESSION: No evidence for DVT within the left lower extremity imaged from the groin to the upper calf.
== END | disposition home or self-care (01) ==
LOC: RADUSWWP 12:00
PROVIDERS: ATTEND Internal Medicine
DX: M79.662 Pain in left lower leg (principal)

== ENCOUNTER → 2024-02-06 | Outpatient (CLI) | payer MEDICARE ==
--- NOTE | 2024-02-09 14:09 | MR ---
EXAMINATION TYPE: MR brain wo/w con DATE OF EXAM: 02/06/2024 7:14 PM CLINICAL INDICATION:Male, 78 years old with history of R42 DIZZINESS; PHH, Dizziness, vertigo, fell 6 weeks ago COMPARISON: None TECHNIQUE: Multi planar, multi sequence imaging was performed through the brain including: T1, T2, In version recovery, susceptibility weighted imaging and gradient echo imaging and Diffusion weighted im aging. The patient was then given intravenous contrast and multi planar, T1 fat-saturation images wer e obtained. IV Contrast: 8.5 cc Gadavist FINDINGS: Mild cerebral atrophy with proportional dilation of ventricular system. Prominent. Vascular spaces i n the right Diffusion-weighted imaging shows no evidence of restricted diffusion to suggest acute/sub acute infarct. Intracranial arterial flow voids are maintained. Midline structures show no abnormalit y. Scattered foci of high T2 signal intensity are seen within the periventricular white matter. The s usceptibility weighted images reveals multiple foci of blooming artifact most pronounced in the left superior cerebellar hemisphere compatible with microhemorrhage.. Susceptibility artifact within the r ight cerebellar hemisphere compatible with abdominal venous anomaly. After administration of gadolini um, no abnormal enhancement is seen. The bone marrow signal is within normal limits. Paranasal sinuses and mastoid air cells: No significant paranasal sinus disease. Visualized orbits: Bilaterally aphakia IMPRESSION: 1. No evidence of intracranial mass, acute/subacute infarct, or abnormal enhancement. 2. Nonspecific white matter changes, likely related to small vessel ischemic disease. 3. 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
== END | disposition home or self-care (01) ==
LOC: RADMRIMAIN 18:15
PROVIDERS: ATTEND Internal Medicine
DX: R90.82 White matter disease, unspecified (principal)
CPT/HCPCS: 70553; A9585

== ENCOUNTER → 2024-09-26 | Outpatient (CLI) | payer MEDICARE ==
--- NOTE | 2024-09-29 20:43 | XR ---
EXAMINATION TYPE: XR thoracic spine complete DATE OF EXAM: 09/26/2024 2:01 PM COMPARISON: None. CLINICAL INDICATION: Male, 79 years old with history of M54.6, TECHNIQUE: 3 view(s) obtained. FINDINGS: There are 12 thoracic type vertebral bodies. Pedicles are intact. Disc heights are preserved. Vertebr al body heights are preserved. Alignment appears preserved IMPRESSION: 1. Unremarkable thoracic spine [facility], , 09/29/2024 8:41 PM
== END | disposition home or self-care (01) ==
LOC: RADXRMAIN 13:41
PROVIDERS: ATTEND Internal Medicine
DX: M54.6 Pain in thoracic spine (principal)
CPT/HCPCS: 72072